=== PATIENT | female | born 1955 | race Caucasian/White ===

== ENCOUNTER 2023-08-31 12:03 | Emergency (ER) | payer MEDICARE, SELFPAY ==
[2023-08-31 12:08] VITALS: BP 136/90; PULSE 72; RESP 16; TEMP 36.6; O2SAT 98; BMI 43.9
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
[2023-08-31 14:04] VITALS: BP 141/69; PULSE 84; RESP 18; O2SAT 97
== END 2023-08-31 14:37 | disposition home or self-care (01) ==
PROVIDERS: Emergency Provider Physician Assistant
DX: S20.212A Contusion of left front wall of thorax, initial encounter (principal); W17.2XXA Fall into hole, initial encounter
CPT/HCPCS: 71101; 99281; 99283